=== PATIENT | female | born 2000 | race Caucasian/White ===

== ENCOUNTER 2022-03-17 19:18 | Emergency (ER) | payer OTHER, SELFPAY ==
--- NOTE | ~2022-03-17 | CT_ITS ---
EXAMINATION: CT ABDOMEN AND PELVIS WITH CONTRAST CLINICAL INFORMATION: Right lower quadrant pain. Question appendicitis. Pain for one week. WBC 15k. COMPARISON: None TECHNIQUE: Multidetector volumetric images were obtained from the superior aspect of the liver through the pubic symphysis following administration 85 mL of Omnipaque 350 intravenous contrast. Sagittal and coronal reformatted images were obtained on the technologist's workstation. Oral contrast: No This CT examination was performed using dose optimization techniques as appropriate, variously including the following: *Automated exposure control *Adjustment of mA and/or kV according to patient size (this includes techniques or standardized protocols for targeted exams where dose is matched to indication/reason for exam; i.e. extremities or head) *Use of iterative reconstruction technique DLP: 352 mGy-cm FINDINGS: LUNG BASES: The visualized lung bases are unremarkable. LIVER, GALLBLADDER, AND BILIARY TREE: The liver is normal in size, shape, and attenuation. No focal hepatic lesion or biliary ductal dilatation is present. The gallbladder is unremarkable with no evidence of radiopaque gallstones, gallbladder wall thickening, or obvious pericholecystic inflammatory changes. PANCREAS: Unremarkable. SPLEEN: Unremarkable. ADRENAL GLANDS: Unremarkable. KIDNEYS AND URETERS: The kidneys are normal in size, shape, and attenuation. No hydronephrosis, hydroureter, or calculi seen. No perinephric stranding. BLADDER: Unremarkable. GASTROINTESTINAL TRACT: Close scrutiny of the cecum and axial, sagittal and coronal images does not definitively visualized the appendix. Multiple intestinal segments are in close approximation within the right lower abdominal quadrant possibly obscuring visualization of the appendix. No suspicious free intraperitoneal fluid or gas collections are noted. Trace physiologic free intraperitoneal fluid is present in the pelvis. The terminal ileum is normal in appearance. No intestinal dilatation or mural thickening identified. ABDOMINAL WALL: No significant hernia is appreciated. LYMPH NODES: Normal. VASCULAR: Unremarkable. PELVIC VISCERA: Anteroverted uterus. No adnexal lesions identified. OSSEOUS STRUCTURES: Unremarkable. CT/CT abdomen pelvis w IV con IMPRESSION: IV contrast enhanced CT of the abdomen and pelvis: *The appendix is not visualized. Close scrutiny of the cecum demonstrates no adjacent inflammatory changes. Multiple intestinal segments are present in close proximity within the right lower abdominal quadrant possibly of obscuring visualization of the appendix. Therefore, this examination is indeterminate with regards to possible appendicitis. No abnormalities identified elsewhere. This result was discussed with Kwadwo Figueroa MD by telephone at 03/18/2022 3:33 AM and it was ascertained that the content and urgency of the report was understood at the time of direct communication.
[2022-03-17 19:37] VITALS: BP 137/57; PULSE 98; RESP 16; TEMP 36.8; O2SAT 100; BMI 20.1
--- NOTE | 2022-03-17 19:37 | ED_ITS ---
HPI - Abdominal Pain General Chief Complaint: Abdominal Pain <Mallory Narayanan NP - Last Filed: 03/17/22 19:40> Stated Complaint: Appendicitis? <Mallory Narayanan NP - Last Filed: 03/17/22 19:40> Time Seen by Provider: 03/18/22 01:28 <Mallory Narayanan NP - Last Filed: 03/17/22 19:40> Source: patient <Kwadwo Figueroa MD - Last Filed: 03/18/22 07:08> Mode of arrival: ambulatory <Kwadwo Figueroa MD - Last Filed: 03/18/22 07:08> Limitations: no limitations <Kwadwo Figueroa MD - Last Filed: 03/18/22 07:08> History of Present Illness HPI narrative: Patient 21 years old with no significant past medical history complaining of pain in her lower abdomen for last 1 week got worse in last 2 days associated with nausea no fever no chills no urinary symptoms patient gets worse after eating food or ambulation no history of ovarian cysts or kidney stone no hematuria no blood in the stool <Kwadwo Figueroa MD - Last Filed: 03/18/22 07:08> Related Data Home Medications: Previous Rx's Medication Instructions Recorded cefuroxime axetil 250 mg tablet 250 mg PO BID 7 days #14 tabs 03/18/22 tramadol 50 mg tablet 50 mg PO Q6H PRN pain #20 tabs 03/18/22 <Mallory Narayanan NP - Last Filed: 03/17/22 19:40> Allergies/Adverse Reactions: Allergies Allergy/AdvReac Type Severity Reaction Status Date / Time No Known Allergies Allergy Verified 03/17/22 19:39 <Mallory Narayanan NP - Last Filed: 03/17/22 19:40> Review of Systems Review of Systems Yes all other systems are reviewed and are negative <Kwadwo Figueroa MD - Last Filed: 03/18/22 07:08> PMFSH Social History Social History: Social History Advance Directives: No Advance Directives Information Provided: No <Mallory Narayanan NP - Last Filed: 03/17/22 19:40> Physical Exam ED Vital Signs: Vital Signs - 24 hr 03/17/22 19:37 03/18/22 02:09 03/18/22 02:28 Temperature 98.2 F 98.3 F Pulse Rate 98 91 Respiratory Rate 16 16 18 Blood Pressure 137/57 L 114/55 L Pulse Oximetry 100 98 Oxygen Delivery Method Room Air Room Air 03/18/22 04:54 Temperature 98.2 F Pulse Rate 80 Respiratory Rate 14 Blood Pressure 103/46 L Pulse Oximetry 100 Oxygen Delivery Method Room Air BMI result Body Mass Index 20.1 <Mallory Narayanan NP - Last Filed: 03/17/22 19:40> Vital Signs - 24 hr 03/17/22 19:37 03/18/22 02:09 03/18/22 02:28 Temperature 98.2 F 98.3 F Pulse Rate 98 91 Respiratory Rate 16 16 18 Blood Pressure 137/57 L 114/55 L Pulse Oximetry 100 98 Oxygen Delivery Method Room Air Room Air 03/18/22 04:54 Temperature 98.2 F Pulse Rate 80 Respiratory Rate 14 Blood Pressure 103/46 L Pulse Oximetry 100 Oxygen Delivery Method Room Air BMI result Body Mass Index 20.1 <Kwadwo Figueroa MD - Last Filed: 03/18/22 07:08> Appearance: Alert. Oriented X3. No acute distress. Eyes: No pallor or icterus ENT: Pharynx normal. Oral Mucosa moist Neck: Normal inspection. Neck supple. CVS: Normal heart rate and rhythm. Pulses normal. Respiratory: No respiratory distress. Equal air entry bilateral, no wheezing/rales/rhonchi Abdomen: Soft tenderness right lower quad with guarding no rebound tenderness Bowel sounds are present, no mass palpable, no CVA tenderness Skin: Skin warm and dry. Normal skin color. Normal skin turgor. Extremities: No lower extremity edema. No calf tenderness Neuro: Oriented X 3. No motor deficit. No sensory deficit.No cerebellar signs , cranial nerves II-XII intact <Kwadwo Figueroa MD - Last Filed: 03/18/22 07:08> Course Course Course Narrative: This is a rapid medical exam. Deferred additional HPI, ROS, PE to primary provider. 21 yo female healthy here with right lower abdominal pain x 1 week with constipation. No nausea, vomiting, diarrhea, urinary symptoms, vaginal discharge. Sexually active with one partner. No new partners. Will check labs, UA, ur preg. <Mallory Narayanan NP - Last Filed: 03/17/22 19:40> Medical Decision Making Medical Decision Making MDM Narrative: Patient's CT scan negative for acute appendicitis UA showed slight positive for wbc's likely the cause for pain discharge patient home on Ceftin <Kwadwo Figueroa MD - Last Filed: 03/18/22 07:08> Differential Diagnoses: Differential diagnosis (Appendicitis/cholelithiasis/ovarian cyst /diverticulitis/kidney stone) <Kwadwo Figueroa MD - Last Filed: 03/18/22 07:08> Lab Attestation: I reviewed the patient's lab results. <Kwadwo Figueroa MD - Last Filed: 03/18/22 07:08> Medications Administered Discontinued Medications Generic Name Dose Route Start Last Admin Trade Name Freq PRN Reason Stop Dose Admin Sodium Chloride 1,000 mls @ 999 mls/hr 03/18/22 01:41 03/18/22 02:09 Ns IV 03/18/22 02:41 999 mls/hr .Q1H1M ONE Administration Piperacillin Sod/Tazobactam 50 mls @ 100 mls/hr 03/18/22 01:42 03/18/22 02:33 Sod 3.375 gm/ Sodium Chloride IV 03/18/22 02:11 100 mls/hr ONCE ONE Administration Iohexol 85 ml 03/18/22 02:29 03/18/22 02:29 Iohexol 350 Mg/Ml 100 Ml Infus..Btl IV 03/18/22 02:30 85 ml ONCE ONE Administration Morphine Sulfate 4 mg 03/18/22 01:41 03/18/22 02:09 Morphine Sulfate 4 Mg/Ml Cartridge IVPUSH 03/18/22 01:42 4 mg ONCE ONE Administration Protocol Ondansetron HCl 4 mg 03/18/22 01:41 03/18/22 02:09 Ondansetron Hcl 4 Mg/2 Ml Vial IVPUSH 03/18/22 01:42 4 mg ONCE ONE Administration <Mallory Narayanan NP - Last Filed: 03/17/22 19:40> Medications Administered Discontinued Medications Generic Name Dose Route Start Last Admin Trade Name Freq PRN Reason Stop Dose Admin Sodium Chloride 1,000 mls @ 999 mls/hr 03/18/22 01:41 03/18/22 02:09 Ns IV 03/18/22 02:41 999 mls/hr .Q1H1M ONE Administration Piperacillin Sod/Tazobactam 50 mls @ 100 mls/hr 03/18/22 01:42 03/18/22 02:33 Sod 3.375 gm/ Sodium Chloride IV 03/18/22 02:11 100 mls/hr ONCE ONE Administration Iohexol 85 ml 03/18/22 02:29 03/18/22 02:29 Iohexol 350 Mg/Ml 100 Ml Infus..Btl IV 03/18/22 02:30 85 ml ONCE ONE Administration Morphine Sulfate 4 mg 03/18/22 01:41 03/18/22 02:09 Morphine Sulfate 4 Mg/Ml Cartridge IVPUSH 03/18/22 01:42 4 mg ONCE ONE Administration Protocol Ondansetron HCl 4 mg 03/18/22 01:41 03/18/22 02:09 Ondansetron Hcl 4 Mg/2 Ml Vial IVPUSH 03/18/22 01:42 4 mg ONCE ONE Administration <Kwadwo Figueroa MD - Last Filed: 03/18/22 07:08> Discharge Plan Discharge Clinical Impression: UTI (urinary tract infection) <Mallory Narayanan NP - Last Filed: 03/17/22 19:40> Patient Disposition: Home, Self-Care <Mallory Narayanan NP - Last Filed: 03/17/22 19:40> Instructions: Urinary Tract Infection in Women (ED) <Mallory Narayanan NP - Last Filed: 03/17/22 19:40> Additional Instructions: Drink plenty of fluids Antibiotic and ibuprofen as prescribed Follow with PCP if not better <Mallory Narayanan NP - Last Filed: 03/17/22 19:40> Prescriptions: New cefuroxime axetil 250 mg tablet 250 mg PO BID 7 Days Qty: 14 0RF tramadol 50 mg tablet 50 mg PO Q6H PRN (Reason: pain) Qty: 20 0RF <Mallory Narayanan NP - Last Filed: 03/17/22 19:40> Interventions: ED Discharge Assessment Last Done: 03/18/22 05:08 <Mallory Narayanan NP - Last Filed: 03/17/22 19:40> Discharge Date/Time: 03/18/22 05:13 <Mallory Narayanan NP - Last Filed: 03/17/22 19:40>
[2022-03-17 21:16] LABS: MANUAL DIFF FLAG NO
[2022-03-17 21:20] LABS: Basophils Percent Auto 0.3 % (0-2); Eosinophils Percent Auto 0.1 % (0-4); Hematocrit 31.4 % (37.0-47.0); Hemoglobin 10.6 g/dl (12.0-16.0); Imm Gran Abs Auto 0.07 X10*3/uL (0.00-0.03); Imm Gran Pct Auto 0.4 % (0.0-0.4); Lymphocytes Absolute Auto 2.4 X10*3/uL (1.2-4.9); Lymphocytes Percent Auto 14.9 % (20-40); Mean Corpuscular HGB Conc 33.8 g/dl (31.0-35.0); Mean Corpuscular Hemoglobin 28.5 pg (27.0-33.0); Mean Corpuscular Volume 84.4 fL (80.0-98.0); Mean Platelet Volume 10.4 fL (9.4-12.3); Monocytes Absolute Auto 1.3 X10*3/uL (0.1-1.2); Monocytes Percent Auto 8.1 % (2-11); Neutrophils Absolute Auto 12.1 x10*3/uL (2.0-8.3); Neutrophils Percent Auto 76.2 % (45-73); Platelet Count 352 X10*3/uL (160-400); Red Blood Count 3.72 X10*6/uL (4.20-5.50); Red Cell Distribution Width 13.1 % (11.0-16.0); White Blood Count 15.9 X10*3/uL (4.8-10.8)
[2022-03-17 21:20] LABS: Appearance Urine Clear; Color Urine Yellow; Glucose Urine UA Negative (Negative); Leukocyte Esterase Urine Small (1+) (Negative); Nitrite Urine Negative (Negative); PH 7.5 (5.0-9.0); Specific Gravity - Urine 1.025 (1.005-1.025); UMIC TRIGGER UACC YES; Urine Blood Trace (Negative); Urine Ketones 15 mg/dL (Negative); Urine Protein 30 (1+) mg/dL (Neg-Trace)
[2022-03-17 21:21] LABS: UPreg QC Valid YES; Urine Pregnancy NEGATIVE (NEGATIVE)
[2022-03-17 21:22] LABS: Bacteria Urine Trace (None Seen); Hyaline Casts Urine 0-2 /LPF (0-2); UACC Culture Trigger YES
[2022-03-17 21:30] LABS: COVID-19 Test Negative (Negative); IDNOW Serial# BCCEAD1C
[2022-03-17 21:42] LABS: Alanine Aminotransferase 14 U/L (0-31); Albumin Level 3.7 g/dL (3.5-5.0); Alkaline Phosphatase 54 U/L (39-117); Anion Gap 11 (12-20); Aspartate Amino Transferase 14 U/L (5-31); Bilirubin Direct 0.2 mg/dL (0.0-0.5); Blood Urea Nitrogen 8 mg/dL (9-16); Calcium 8.5 mg/dL (8.4-10.2); Carbon Dioxide 26 mmol/L (22-29); Chloride 105 mmol/L (96-108); Creatinine Clr Calc Pharmacy 101.7; Estimated Glomerular Filt Rate > 60; Glucose Random 88 mg/dL (60-115); Lipase 14 U/L (8-78); Sodium 138 mmol/L (135-145); Total Protein 6.7 g/dL (6.5-8.0)
[2022-03-17 23:05] LABS: Bilirubin Total 0.3 mg/dL (0.0-1.0)
[2022-03-18 02:09] VITALS: RESP 16
[2022-03-18] MEDS: Morphine Sulfate 4 MG/ML CARTRIDGE IVPUSH (02:09)
[2022-03-18] MEDS: 0.9 % Sodium Chloride 1,000 ML 999 ML IV (02:09)
[2022-03-18] MEDS: ondansetron HCL 4 MG/2 ML VIAL IVPUSH (02:09)
[2022-03-18 02:28] VITALS: BP 114/55; PULSE 91; RESP 18; TEMP 36.8; O2SAT 98
[2022-03-18] MEDS: iohexoL 350 MG/ML 100 ML INFUS..BTL 85 ML IV (02:29)
[2022-03-18] MEDS: Piperacillin Sodium/Tazobactam 3.375 GM in 0.9 % Sodium Chloride 50 ML IV (02:33)
[2022-03-18 04:54] VITALS: BP 103/46; PULSE 80; RESP 14; TEMP 36.8; O2SAT 100
== END 2022-03-18 05:13 | disposition home or self-care (01) ==
PROVIDERS: Nurse Practitioner Family; Emergency Provider Internal Medicine
DX: N39.0 Urinary tract infection, site not specified (principal); R10.31 Right lower quadrant pain; Z20.822 Contact with and (suspected) exposure to COVID-19; Z79.899 Other long term (current) drug therapy
CPT/HCPCS: 36415; 74177; 80048; 80076; 81001; 81025; 83690; 85025; 87086; 87635; 96374; 96375; 99284; J2270; J2405; J2543; Q9967